=== PATIENT | female | born 1995 | race Two or more races ===

== ENCOUNTER 2017-01-14 11:20 | Emergency (ER) | payer OTHER, BC ==
[~2017-01-14] VITALS: Ht 162.6 cm; Wt 50.3 kg
[~2017-01-14 11:20] MED LIST: ACYC400T PO; IBUP-1060 PO; LABE100T3 PO; OXYC-323 PO; PNV1TABL25 PO
[2017-01-14 11:45] VITALS: BP 113/55
[2017-01-14] MEDS ORDERED: GELATIN SPONGE SIZE 100. TP ONE (12:30)
--- NOTE | 2017-01-14 12:42 | PHYS DOC ---
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 Patient states her last tetanus immunization approximately 3 years ago. Bleeding is currently controlled with dressing on. Patient denies any numbness or tingling into the hand. Review of Systems Review of Systems Constitutional: Denies fever or chills [] Eyes: Denies change in visual acuity, redness, or eye pain [] HENT: Denies nasal congestion or sore throat [] Respiratory: Denies cough or shortness of breath [] Cardiovascular: No additional information not addressed in HPI [] GI: Denies abdominal pain, nausea, vomiting, bloody stools or diarrhea [] : Denies dysuria or hematuria [] Musculoskeletal: Denies back pain or joint pain [] Integument: Denies rash or skin lesions. Laceration to left ring finger Neurologic: Denies headache, focal weakness or sensory changes [] Endocrine: Denies polyuria or polydipsia [] Current Medications Current Medications Current Medications Medications (Trade) Dose Ordered Sig/Sylvain Start Time Stop Time Status Last Admin Dose Admin Gelatin (Gelfoam Size 100) 1 each 1X ONCE 01/14/17 12:30 01/14/17 12:31 DC 01/14/17 13:08 1 EACH Allergies Allergies Allergies Coded Allergies Type Severity Reaction Last Updated Verified No Known Drug Allergies 05/06/14 No Physical Exam Physical Exam Constitutional: Well developed, well nourished, no acute distress, non-toxic appearance. [] HENT: Normocephalic, atraumatic, bilateral external ears normal, oropharynx moist, no oral exudates, nose normal. [] Eyes: PERRLA, EOMI, conjunctiva normal, no discharge. [] Neck: Normal range of motion, no tenderness, supple, no stridor. [] Cardiovascular:Heart rate regular rhythm Lungs & Thorax: No respiratory distress noted Skin: Warm, dry, no erythema, no rash. Patient with 1 cm superficial laceration noted to the left ring finger. Bleeding was noted when stressing was removed. Back: No tenderness Extremities: No tenderness, no cyanosis, no clubbing, ROM intact, no edema. [] Neurologic: Alert and oriented X 3, normal motor function, normal sensory function, no focal deficits noted. [] Psychologic: Affect normal, judgement normal, mood normal. [] Current Patient Data Vital Signs Vital Signs Date Time Temp Pulse Resp B/P (MAP) Pulse Ox O2 Delivery O2 Flow Rate FiO2 01/14/17 11:45 98.3 78 16 98 Room Air 98.3 EKG EKG [] Radiology/Procedures Radiology/Procedures [] Course & Med Decision Making Course & Med Decision Making Pertinent Labs and Imaging studies reviewed. (See chart for details) Patient had a 1 cm laceration that is very superficial however Gelfoam was placed over the site no dressing applied. Patient's tetanus immunization was up- to-date therefore no need for tetanus immunization. Patient will be provided with ibuprofen for pain and discomfort recommended ice packs on 20 minutes off 20 minutes several times a day. Recommended patient to take the dressing off in the next 24 hours she will need to soak the dressing to take it off to prevent further bleeding patient will be discharged home in stable condition signs and symptoms to return back to emergency department as been provided. Patient was provided with signs and symptoms of infection. All questions and concerns was answered for the patient at her bedside. [] Dragon Disclaimer Dragon Disclaimer This electronic medical record was generated, in whole or in part, using a voice recognition dictation system. Departure Departure Impression: Primary Impression: Laceration Disposition: 01 HOME, SELF-CARE Condition: STABLE Referrals: FRANCOISE CHAVES (PCP) Patient Instructions: Fingertip Laceration Additional Instructions: Activity as tolerated. Keep the dressing clean and dry for next 24 hours. When you take the dressing off you will need to soak it to take the Gelfoam off to prevent bleeding. Keep the area clean and dry. Clean the site twice a day after you remove the dressing tomorrow and place antibiotic ointment on it. Signs and symptoms of infection: Redness, warmth, tenderness or any yellow/ greenish drainage of a come from the site if this should occur follow-up through her workup DrBud wade. Return back to emergency prior signs symptoms of become worse. Scripts Ibuprofen (IBUPROFEN) 800 Mg Tablet 800 MG PO PRN Q6HRS Y for INFLAMMATION, #30 TAB Prov: HEATHER PADILLA PAINTER ORDNANCE 01/14/17 HEATHER PADILLA APRN Jan 14, 2017 12:42
[2017-01-14] MEDS ORDERED: IBUP-1060 PO (13:13)
== END 2017-01-14 13:34 | disposition home or self-care (01) ==
LOC: ER 11:20
DX: S61.215A Laceration without foreign body of left ring finger without damage to nail, initial encounter (principal); Y28.8XXA Contact with other sharp object, undetermined intent, initial encounter; Y93.G9 Activity, other involving cooking and grilling; Y99.8 Other external cause status; Y92.89 Other specified places as the place of occurrence of the external cause
CPT/HCPCS: 99282